=== PATIENT | male | born 2000 ===

== ENCOUNTER 2022-01-11 09:22 | Emergency (ER) | payer SELFPAY ==
[2022-01-11] MEDS ORDERED: levETIRAcetam 1000 MG/NS 0.75% 1,000 MG/100 ML BAG IV ONE (09:47)
[2022-01-11] MEDS ORDERED: SODIUM CHLORIDE 0.9% 1000 ML 1,000 ML IV ONE (09:47)
== END 2022-01-11 09:55 | disposition left against medical advice (07) ==
LOC: ED 09:22
DX: R56.9 Unspecified convulsions (principal); Z53.21 Procedure and treatment not carried out due to patient leaving prior to being seen by health care provider